=== PATIENT | female | born 2000 | race Caucasian/White ===

== ENCOUNTER 2020-03-31 11:10 | Inpatient (IN) | payer MEDICAID ==
[2020-03-31] MEDS ORDERED: Misoprostol 100 MCG Tab VAG STA (19:26)
[2020-03-31] MEDS ORDERED: Nalbuphine 10 MG/ML Syringe IVPUSH PRN (19:26)
[2020-03-31] MEDS ORDERED: Sodium Chloride 0.9% 10 ML Syringe FLUSH PRN (19:26)
[2020-03-31] MEDS ORDERED: Ondansetron 4 MG/2 ML SDV IVPUSH PRN (19:26)
--- NOTE | 2020-03-31 19:28 | PCM.LDHP ---
L&D History of Present Illness - General Date of Service: 03/31/20 Admit Problem/Dx: Patient Status Order with Admit Dx/Problem 03/31/20 19:26 Patient Status [ADT] Routine Admission Diagnosis/Problem Admission Diagnosis/Problem Normal in third trimester Source of Information: Patient History Limitations: Reports: No Limitations - History of Present Illness Introduction:: Patient is a 19 y/o at 40 1/7 wks who presents for IOL. Doing well. Getting good FM. 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: : 1 Para: 0 LMP (Approximate): - Past Surgical History HEENT Surgical History: Reports: Oral Surgery, Tonsillectomy Social & Family History - Family History Family Medical History: Noncontributory - Tobacco Use Smoking Status *Q: Never Smoker - Alcohol Use Alcohol Use History: No - Recreational Drug Use Recreational Drug Use: No H&P Review of Systems - Review of Systems: Review Of Systems: See Below General: Reports: No Symptoms Pulmonary: Reports: No Symptoms Cardiovascular: Reports: No Symptoms Gastrointestinal: Reports: No Symptoms Genitourinary: Reports: No Symptoms Musculoskeletal: Reports: No Symptoms Psychiatric: Reports: No Symptoms L&D Exam - Exam Exam: See Below - OB Specific Contraction Intensity: Irritability Movement: Active Heart Tones: Present Heart Tones per Min: 140 Heart Rate (FHR) Variability: Moderate (6-25 bmp) Presentation: Vertex - Strong Score Strong Score Cervix Position: Posterior Strong Score Consistency: Soft Strong Score Effacement: >80% Strong Score Dilation: 1-2 cm (2-3) Strong Score Infant's Station: -3 Strong Score Total: 6 - Exam General: Alert, Oriented, Cooperative Lungs: Clear to Auscultation, Normal Respiratory Effort Cardiovascular: Regular Rate, Regular Rhythm GI/Abdominal Exam: Soft, Non-Tender Genitourinary: Normal external exam Extremities: Normal Inspection Skin: Warm, Dry, Intact - Patient Data Result Diagrams: 03/31/20 19:45 - Problem List (1) 40 weeks gestation of SNOMED Code(s): 69690676 ICD Code: Z3A.40 - 40 WEEKS GESTATION OF Status: Acute Current Visit: Yes Problem List Initiated/Reviewed/Updated: Yes Orders Last 24hrs: Active Orders 24 hr Category Date Time Status Patient Status [ADT] Routine ADT 03/31/20 19:26 Ordered Communication Order [RC] ASDIRECTED Care 03/31/20 19:26 Ordered Communication Order [RC] ASDIRECTED Care 03/31/20 19:26 Ordered Communication Order [RC] ASDIRECTED Care 03/31/20 19:26 Ordered Communication Order [RC] ASDIRECTED Care 03/31/20 19:26 Ordered Heart Tones [RC] ASDIRECTED Care 03/31/20 19:26 Ordered Monitoring [RC] INTERMITTENT Care 03/31/20 19:26 Ordered Non Stress Test [RC] PER UNIT ROUTINE Care 03/31/20 19:26 Ordered Notify Provider [RC] ASDIRECTED Care 03/31/20 19:26 Ordered Notify Provider [RC] PRN Care 03/31/20 19:26 Ordered Peripheral IV Care [RC] . DIRECTED Care 03/31/20 19:26 Ordered Vaginal Exam [RC] ASDIRECTED Care 03/31/20 19:26 Ordered Vital Signs [RC] ASDIRECTED Care 03/31/20 19:26 Ordered Regular Diet [DIET] Diet 03/31/20 Dinner Ordered CBC W/O DIFF,HEMOGRAM [HEME] Stat Lab 03/31/20 19:26 Ordered RAPID PLASMA REAGIN,RPR [CHEM] Routine Lab 03/31/20 19:26 Ordered TYPE AND SCREEN [BBK] Routine Lab 03/31/20 19:26 Ordered Lactated Ringers [Ringers, Lactated] 1,000 ml Med 03/31/20 19:30 Ordered IV ASDIRECTED Nalbuphine [Nubain] Med 03/31/20 19:26 Ordered 10 mg IVPUSH Q2H PRN Ondansetron [Zofran] Med 03/31/20 19:26 Ordered 4 mg IVPUSH Q4H PRN Oxytocin/Lactated Ringers [Pitocin in LR 10 Units/1,000 Med 03/31/20 19:30 Ordered ML] 10 unit in 1,000 ml IV .CONTINUOUS Oxytocin/Lactated Ringers [Pitocin in LR 10 Units/1,000 Med 03/31/20 19:30 Ordered ML] 10 unit in 1,000 ml IV TITRATE Sodium Chloride 0.9% [Saline Flush] Med 03/31/20 19:26 Ordered 10 ml FLUSH ASDIRECTED PRN miSOPROStoL [Cytotec] Med 03/31/20 19:26 Stat 25 mcg VAG NOW STA Electronic Heart Tones Ext w TOCO [WOMSER] Oth 03/31/20 19:26 Ordered Routine Electronic Heart Tones Internal [WOMSER] Per Unit Ot 03/31/20 19:26 Ordered Routine Peripheral IV Insertion Adult [OM.PC] Routine Ot 03/31/20 19:26 Ordered Resuscitation Status Routine Resus Stat 03/31/20 19:26 Ordered Assessment/Plan Comment:: * Labs to be done * Cytotec for IOL, switch to pitocin / ROM when able * GBS negative, no need for antibiotics * Pain management per patient preference * Anticipate
[2020-03-31] MEDS ORDERED: Oxytocin/Lactated Ringers 10 UNIT/1,000 ML BAG IV SCH ×2 (19:30)
[2020-03-31] MEDS ORDERED: Misoprostol 25 MCG (1/4 of 100 MCG) Tab VAG ONE (20:04)
[2020-03-31] MEDS: Lactated Ringers 1,000 ML IV SCH (20:49)
[2020-04-01] MEDS ORDERED: Bupivacaine 0.25% 10 ML SDV ONE
[2020-04-01] MEDS: Lactated Ringers 1,000 ML IV SCH ×2 (04:59→07:33)
[2020-04-01] MEDS ORDERED: diphenhydrAMINE 50 MG/ML SDV IVPUSH PRN (05:03)
[2020-04-01] MEDS ORDERED: fentaNYL 100 MCG/2 ML SDV EPIDUR PRN (05:03)
[2020-04-01] MEDS ORDERED: Bupivacaine/fentaNYL/NS 100 ML Bag EPIDUR PRN (05:03)
[2020-04-01] MEDS ORDERED: ePHEDrine 50 MG/ML SDV IVPUSH PRN (05:03)
--- NOTE | 2020-04-01 05:53 | PCM.PREANE ---
Preanesthetic Assessment - Procedure Proposed Procedure: labor epidural - Anesthesia/Transfusion/Family Hx Anesthesia History: Prior Anesthesia Without Reaction Family History of Anesthesia Reaction: No Transfusion History: No Prior Transfusion(s) - Review of Systems General: No Symptoms Pulmonary: No Symptoms Cardiovascular: No Symptoms Gastrointestinal: Abdominal Pain, Nausea Neurological: Dizziness Other: Reports: None - Physical Assessment Vital Signs: Last Vital Signs Temp 36.8 C 03/31/20 19:40 Pulse 119 H 03/31/20 19:40 Resp 16 03/31/20 19:40 BP 132/86 03/31/20 19:40 Pulse Ox 96 03/31/20 19:40 Height: 1.63 m Weight: 96.162 kg ASA Class: 2 Mental Status: Alert & Oriented x3 Airway Class: Mallampati = 2 Dentition: Reports: Normal Dentition Thyro-Mental Finger Breadths: 3 Mouth Opening Finger Breadths: 3 ROM/Head Extension: Full Lungs: Clear to Auscultation, Normal Respiratory Effort Cardiovascular: Regular Rate, Regular Rhythm - Lab Values: Laboratory Last Values WBC 11.45 K/mm3 (3.98-10.04) H 03/31/20 19:45 RBC 4.31 M/mm3 (3.98-5.22) 03/31/20 19:45 Hgb 13.3 gm/dl (11.2-15.7) 03/31/20 19:45 Hct 38.6 % (34.1-44.9) 03/31/20 19:45 MCV 89.6 fl (79.4-94.8) 03/31/20 19:45 MCH 30.9 pg (25.6-32.2) 03/31/20 19:45 MCHC 34.5 g/dl (32.2-35.5) 03/31/20 19:45 RDW Std Deviation 41.9 fL (36.4-46.3) 03/31/20 19:45 Plt Count 234 K/mm3 (182-369) 03/31/20 19:45 MPV 11.4 fl (9.4-12.3) 03/31/20 19:45 RPR Non-reactive (NONREACTIVE) 03/31/20 19:45 Blood Type O POSITIVE 03/31/20 19:45 Gel Antibody Screen Negative 03/31/20 19:45 - Allergies Allergies/Adverse Reactions: Allergies Allergy/AdvReac Type Severity Reaction Status Date / Time azithromycin [From Zithromax] Allergy Hives Verified 03/31/20 21:04 - Acknowledgements Anesthesia Type Planned: Epidural Pt an Appropriate Candidate for the Planned Anesthesia: Yes Alternatives and Risks of Anesthesia Discussed w Pt/Guardian: Yes Pt/Guardian Understands and Agrees with Anesthesia Plan: Yes PreAnesthesia Questionnaire HEENT History: Reports: None Respiratory History: Reports: Asthma 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: Neurological History: Reports: Migraines - Past Surgical History HEENT Surgical History: Reports: Oral Surgery, Tonsillectomy - SUBSTANCE USE Smoking Status *Q: Never Smoker Tobacco Use Within Last Twelve Months: No Recreational Drug Use History: No - HOME MEDS Home Medications: Home Meds Acetaminophen [Pain Reliever] 1 tab PO ASDIRECTED PRN 03/31/20 [History] Albuterol [Proair HFA] 2 puff PO ASDIRECTED 03/31/20 [History] Pnv No.95/Ferrous Fum/Folic AC [ Tablet] 1 tab PO DAILY 03/31/20 [ History] Promethazine [Phenergan] 25 mg PO Q6H PRN 03/31/20 [History] - CURRENT (IN HOUSE) MEDS Current Meds: Current Medications Diphenhydramine HCl (Benadryl) 25 mg IVPUSH Q6H PRN PRN Reason: pruritis Ephedrine Sulfate (Ephedrine Sulfate) 5 mg IVPUSH ASDIRECTED PRN PRN Reason: Hypotension Fentanyl (Sublimaze) 100 mcg EPIDUR Q3H PRN PRN Reason: Pain Last Admin: 04/01/20 05:17 Dose: 100 mcg Fentanyl/Bupivacaine HCl (Fentanyl/Bupivacaine/Ns 2 Mcg-0.125% 100 Ml) 100 ml EPIDUR ASDIRECTED PRN PRN Reason: Pain Last Admin: 04/01/20 05:17 Dose: 100 ml Lactated Ringer's (Ringers, Lactated) 1,000 mls @ 40 mls/hr IV ASDIRECTED SHEEBA Last Admin: 04/01/20 04:59 Dose: 40 mls/hr Oxytocin/Lactated Ringer's (Pitocin In Lr 10 Units/1,000 Ml) 10 unit in 1,000 mls @ 12 mls/hr IV TITRATE SHEEBA; Protocol Last Titration: 04/01/20 04:10 Dose: 0 munits/min, 0 mls/hr Oxytocin/Lactated Ringer's (Pitocin In Lr 10 Units/1,000 Ml) 10 unit in 1,000 mls @ 500 mls/hr IV .CONTINUOUS SHEEBA Nalbuphine HCl (Nubain) 10 mg IVPUSH Q2H PRN PRN Reason: Pain Last Admin: 04/01/20 04:38 Dose: 10 mg Ondansetron HCl (Zofran) 4 mg IVPUSH Q4H PRN PRN Reason: Nausea/Vomiting Sodium Chloride (Saline Flush) 10 ml FLUSH ASDIRECTED PRN PRN Reason: Keep Vein Open Discontinued Medications Misoprostol (Cytotec) 25 mcg VAG NOW STA Stop: 03/31/20 19:27 Last Admin: 03/31/20 21:03 Dose: Not Given Misoprostol (Cytotec) 25 mcg VAG ONETIME ONE Stop: 03/31/20 20:05 Last Admin: 03/31/20 20:28 Dose: 25 mcg
--- NOTE | 2020-04-01 07:10 | PCM.PNLD ---
Labor Progress Note - VS & Meds Vital Signs: Last Vital Signs Temp 36.8 C 03/31/20 19:40 Pulse 119 H 03/31/20 19:40 Resp 16 03/31/20 19:40 BP 132/86 03/31/20 19:40 Pulse Ox 96 03/31/20 19:40 Active Medications: Current Medications Diphenhydramine HCl (Benadryl) 25 mg IVPUSH Q6H PRN PRN Reason: pruritis Ephedrine Sulfate (Ephedrine Sulfate) 5 mg IVPUSH ASDIRECTED PRN PRN Reason: Hypotension Fentanyl (Sublimaze) 100 mcg EPIDUR Q3H PRN PRN Reason: Pain Last Admin: 04/01/20 05:17 Dose: 100 mcg Fentanyl/Bupivacaine HCl (Fentanyl/Bupivacaine/Ns 2 Mcg-0.125% 100 Ml) 100 ml EPIDUR ASDIRECTED PRN PRN Reason: Pain Last Admin: 04/01/20 05:17 Dose: 100 ml Lactated Ringer's (Ringers, Lactated) 1,000 mls @ 40 mls/hr IV ASDIRECTED SHEEBA Last Admin: 04/01/20 04:59 Dose: 40 mls/hr Oxytocin/Lactated Ringer's (Pitocin In Lr 10 Units/1,000 Ml) 10 unit in 1,000 mls @ 12 mls/hr IV TITRATE SHEEBA; Protocol Last Titration: 04/01/20 04:10 Dose: 0 munits/min, 0 mls/hr Oxytocin/Lactated Ringer's (Pitocin In Lr 10 Units/1,000 Ml) 10 unit in 1,000 mls @ 500 mls/hr IV .CONTINUOUS SHEEBA Nalbuphine HCl (Nubain) 10 mg IVPUSH Q2H PRN PRN Reason: Pain Last Admin: 04/01/20 04:38 Dose: 10 mg Ondansetron HCl (Zofran) 4 mg IVPUSH Q4H PRN PRN Reason: Nausea/Vomiting Sodium Chloride (Saline Flush) 10 ml FLUSH ASDIRECTED PRN PRN Reason: Keep Vein Open Discontinued Medications Misoprostol (Cytotec) 25 mcg VAG NOW STA Stop: 03/31/20 19:27 Last Admin: 03/31/20 21:03 Dose: Not Given Misoprostol (Cytotec) 25 mcg VAG ONETIME ONE Stop: 03/31/20 20:05 Last Admin: 03/31/20 20:28 Dose: 25 mcg - Uterine Contractions Uterine Monitoring Mode: External [place] Contraction Intensity: Strong Uterine Resting Tone: Soft - Monitoring Monitor Mode: External Ultrasound Heart Rate (FHR) Baseline: 135 Heart Rate (FHR) Variability: Moderate (6-25 bmp) Accelerations: Present, 15x15 (with check) Decelerations: Early Strip Review: Category I - Vaginal Exam Dilation (cm): 9-10 Effacement (Percent): 100 Station: 1 Cervical Position: Anterior - Labor Progress (Free Text) Labor Progress: Doing well. Received one dose of cytotec overnight and then on pitocin briefly before discontinued as patient breana on own. Had SROM around 0500. Epidural complete this AM. Currently 9-10. Will reassess in another hour and likely begin pushing at that time
[2020-04-01] MEDS ORDERED: Misoprostol 200 MCG Tab PO ONE (11:20)
--- NOTE | 2020-04-01 11:39 | PCM.DEL ---
L & D Note - General Info Date of Service: 04/01/20 - Delivery Note Labor: Induced by Oxytocin Cervical Ripening Method: Misoprostil Delivery Outcome: Livebirth Delivery Method: Spontaneous Vaginal Delivery-Single Infant Delivery Mode: Vacuum Extraction Presentation: Right Occiput Anterior (JUANCARLOS) Nuchal Cord: None Anesthesia Type: Epidural Amniotic Fluid Description: Clear Episiotomy Type: None Laceration: 2nd Degree, Perineal Suture type: Vicryl Suture size: 2-0 Placenta: Intact, Spontaneous Cord: 3 Vessels Estimated Blood Loss: 300 Resuscitation Needed: Yes [place]: Bulb Syringe, Stimulated, Warmed, [place] Used, Warmer Used Score 1 min: 7 Score 5 min: 9 Delivery Comments (Free Text/Narrative):: Patient found to be complete and began pushing. Was augmented with pitocin while pushing. Different pushing positions utilized. After about 3 hrs of pushing did become tired and requested vacuum assistance. Sterile vaginal exam complete/complete/+3 station. head in JUANCARLOS presentation. Maternal pushing effort was good and the pelvis was felt to be adequate for an instrument assisted delivery. Given exhaustion the decision was made to proceed with vacuum assisted vaginal delivery. The mushroom cup was placed without difficulty with care to avoid the vaginal side coburn at 1106. Total pressure applied 550 mm Hg. No pop offs.. Suction was removed following delivery of the head. No nuchal cord. With gentle downward traction shoulders did not deliver. Patient put in deeper McRobert's and still did not deliver. Diagnosis of shoulder dystocia. Deep McRobert's and suprapubic pressure applied. Eventually anterior shoulder did deliver with rest of infant quickly following. Delivery at 1110. Total shoulder dystocia time about 45 seconds. The umbilical cord was clamped and cut and the was taken to the warmer for assessment. Placenta allowed time to separate and expelled intact. Inspection of the perineum following delivery with a 2nd degree laceration which was repaired with a 2-0 Vicryl in the typical fashion. - General Info Date of Service: 04/01/20 - Patient Data Vitals - Most Recent: Last Vital Signs Temp 36.8 C 03/31/20 19:40 Pulse 119 H 03/31/20 19:40 Resp 16 03/31/20 19:40 BP 132/86 03/31/20 19:40 Pulse Ox 96 03/31/20 19:40 Weight - Most Recent: 96.162 kg I&O - Last 24 Hours: Intake & Output 03/31/20 04/01/20 04/01/20 22:59 06:59 14:59 Intake Total 2700 Output Total 100 Balance 2600 Lab Results Last 24 Hours: Laboratory Results - last 24 hr 03/31/20 03/31/20 03/31/20 Range/Units 19:45 19:45 19:45 WBC 11.45 H (3.98-10.04) K/mm3 RBC 4.31 (3.98-5.22) M/mm3 Hgb 13.3 (11.2-15.7) gm/dl Hct 38.6 (34.1-44.9) % MCV 89.6 (79.4-94.8) fl MCH 30.9 (25.6-32.2) pg MCHC 34.5 (32.2-35.5) g/dl RDW Std Deviation 41.9 (36.4-46.3) fL Plt Count 234 (182-369) K/mm3 MPV 11.4 (9.4-12.3) fl RPR Non-reactive (NONREACTIVE) Blood Type O POSITIVE Gel Antibody Screen Negative Med Orders - Current: Current Medications Diphenhydramine HCl (Benadryl) 25 mg IVPUSH Q6H PRN PRN Reason: pruritis Ephedrine Sulfate (Ephedrine Sulfate) 5 mg IVPUSH ASDIRECTED PRN PRN Reason: Hypotension Fentanyl (Sublimaze) 100 mcg EPIDUR Q3H PRN PRN Reason: Pain Last Admin: 04/01/20 05:17 Dose: 100 mcg Fentanyl/Bupivacaine HCl (Fentanyl/Bupivacaine/Ns 2 Mcg-0.125% 100 Ml) 100 ml EPIDUR ASDIRECTED PRN PRN Reason: Pain Last Admin: 04/01/20 05:17 Dose: 100 ml Lactated Ringer's (Ringers, Lactated) 1,000 mls @ 40 mls/hr IV ASDIRECTED SHEEBA Last Admin: 04/01/20 07:33 Dose: 40 mls/hr Oxytocin/Lactated Ringer's (Pitocin In Lr 10 Units/1,000 Ml) 10 unit in 1,000 mls @ 12 mls/hr IV TITRATE SHEEBA; Protocol Last Titration: 04/01/20 11:11 Dose: 500 mls/hr Oxytocin/Lactated Ringer's (Pitocin In Lr 10 Units/1,000 Ml) 10 unit in 1,000 mls @ 500 mls/hr IV .CONTINUOUS SHEEBA Nalbuphine HCl (Nubain) 10 mg IVPUSH Q2H PRN PRN Reason: Pain Last Admin: 04/01/20 04:38 Dose: 10 mg Ondansetron HCl (Zofran) 4 mg IVPUSH Q4H PRN PRN Reason: Nausea/Vomiting Sodium Chloride (Saline Flush) 10 ml FLUSH ASDIRECTED PRN PRN Reason: Keep Vein Open Discontinued Medications Misoprostol (Cytotec) 25 mcg VAG NOW STA Stop: 03/31/20 19:27 Last Admin: 03/31/20 21:03 Dose: Not Given Misoprostol (Cytotec) 25 mcg VAG ONETIME ONE Stop: 03/31/20 20:05 Last Admin: 03/31/20 20:28 Dose: 25 mcg Misoprostol (Cytotec) 600 mcg PO ONETIME ONE Stop: 04/01/20 11:21 Last Admin: 04/01/20 11:25 Dose: 600 mcg - Problem List & Annotations (1) 40 weeks gestation of SNOMED Code(s): 55185449 Code(s): Z3A.40 - 40 WEEKS GESTATION OF Status: Acute Current Visit: Yes (2) Shoulder dystocia, delivered SNOMED Code(s): 960167141, 597778410 Code(s): O66.0 - OBSTRUCTED LABOR DUE TO SHOULDER DYSTOCIA Status: Acute Current Visit: Yes (3) Vaginal delivery SNOMED Code(s): 707456249 Code(s): O80 - ENCOUNTER FOR FULL-TERM UNCOMPLICATED DELIVERY Status: Acute Current Visit: Yes - Problem List Review Problem List Initiated/Reviewed/Updated: Yes - My Orders Last 24 Hours: My Active Orders 03/31/20 19:26 Patient Status [ADT] Routine Communication Order [RC] ASDIRECTED Communication Order [RC] ASDIRECTED Communication Order [RC] ASDIRECTED Communication Order [RC] ASDIRECTED Monitoring [RC] INTERMITTENT Non Stress Test [RC] PER UNIT ROUTINE Notify Provider [RC] ASDIRECTED Notify Provider [RC] PRN Peripheral IV Care [RC] . DIRECTED Vital Signs [RC] ASDIRECTED Nalbuphine [Nubain] 10 mg IVPUSH Q2H PRN Ondansetron [Zofran] 4 mg IVPUSH Q4H PRN Sodium Chloride 0.9% [Saline Flush] 10 ml FLUSH ASDIRECTED PRN Electronic Heart Tones Ext w TOCO [WOMSER] Routine Electronic Heart Tones Internal [WOMSER] Per Unit Routine Peripheral IV Insertion Adult [OM.PC] Routine Resuscitation Status Routine 03/31/20 19:30 Lactated Ringers [Ringers, Lactated] 1,000 ml IV ASDIRECTED Oxytocin/Lactated Ringers [Pitocin in LR 10 Units/1,000 ML] 10 unit in 1,000 ml IV .CONTINUOUS Oxytocin/Lactated Ringers [Pitocin in LR 10 Units/1,000 ML] 10 unit in 1,000 ml IV TITRATE 03/31/20 Dinner Regular Diet [DIET] 04/01/20 11:36 Patient Status Manage Transfer [TRANSFER] Routine - Assessment Assessment:: PPD#0 - Plan Plan:: * Routine cares * Breast feeding * Discharge home in 1-2 hours
[2020-04-01] MEDS ORDERED: Ondansetron 4 MG/2 ML SDV ONE (13:07)
[2020-04-01] MEDS: Benzocaine/Menthol 20%-0.5% Spray 56 GM Canister TOP PRN (13:11)
[2020-04-01] MEDS: Witch Hazel Medicated Pads 40/Jar TOP PRN (13:11)
[2020-04-01] MEDS: Acetaminophen 325 MG Tab PO PRN ×2 (14:32→19:24)
[2020-04-01] MEDS: Docusate Sodium 100 MG Cap PO PRN (19:24)
--- NOTE | 2020-04-01 22:02 | PCM48HPAN ---
Post Anesthesia Note - EVALUATION WITHIN 48HRS OF ANESTHETIC Vital Signs in Normal Range: Yes Patient Participated in Evaluation: Yes Respiratory Function Stable: Yes Airway Patent: Yes Cardiovascular Function Stable: Yes Hydration Status Stable: Yes Pain Control Satisfactory: Yes Nausea and Vomiting Control Satisfactory: Yes Mental Status Recovered: Yes Vital Signs: Last Vital Signs Temp 36.8 C 03/31/20 19:40 Pulse 119 H 03/31/20 19:40 Resp 16 03/31/20 19:40 BP 132/86 03/31/20 19:40 Pulse Ox 96 03/31/20 19:40
[2020-04-02] MEDS: Ibuprofen 600 MG Tab PO PRN ×3 (03:51→18:06)
[2020-04-02] MEDS: Witch Hazel Medicated Pads 40/Jar TOP PRN (03:53)
[2020-04-02] MEDS: Acetaminophen 325 MG Tab PO PRN ×3 (06:38→21:30)
[2020-04-02] MEDS: Benzocaine/Menthol 20%-0.5% Spray 56 GM Canister TOP PRN (06:38)
[2020-04-02] MEDS: Docusate Sodium 100 MG Cap PO PRN ×2 (10:15→21:30)
--- NOTE | 2020-04-02 10:23 | PCM.SN.2 ---
- Free Text/Narrative Note: Post Progress Note PPD #1 Subjective: Doing well overall. Ambulating without difficulty. Lochia minimal. Voiding without difficulty. Tolerating regular diet without nausea or vomiting. Pain controlled with oral medications. Breast-feeding with small amounts of formula supplementation with minimal difficulty. Objective: Vitals: Vital Signs - 24 hr 04/01/20 04/02/20 04/02/20 19:41 03:48 08:27 Temperature 36.7 C 36.7 C 36.9 C Pulse, 97 62 72 Peripheral Respiratory 14 13 12 Rate Blood Pressure 139/85 128/80 110/69 O2 Sat by Pulse 95 97 95 Oximetry Physical Exam General: Alert and oriented, no acute distress Lungs: Clear to auscultation bilaterally Heart: Regular rate and rhythm Abdomen: Soft, minimal appropriate tenderness, non-distended, fundus midline, nontender, and at the umbilicus Extremities: Trace edema in bilateral lower extremities to mid shins ASSESSMENT: 19-year-old female -0-0-1 s/p vacuum-assisted vaginal delivery PPD #1, complicated by shoulder dystocia during delivery PLAN: Doing well Breast-feeding with small amounts of formula supplementation with minimal difficulty. Assist as needed Lochia minimal. Continue to monitor for appropriate lochia. Continue routine care Anticipate discharge home tomorrow Rodo Artis MD 10:21 AM 04/02/2020
[2020-04-03] MEDS: Acetaminophen 325 MG Tab PO PRN ×2 (01:43→06:35)
[2020-04-03] MEDS: Ibuprofen 600 MG Tab PO PRN ×2 (01:43→08:24)
[2020-04-03] MEDS: Docusate Sodium 100 MG Cap PO PRN (08:24)
--- NOTE | 2020-04-03 09:50 | PCM.SN.2 ---
- Free Text/Narrative Note: Post Progress Note PPD #2 Subjective: Doing well overall. Ambulating without difficulty. Lochia minimal. Voiding without difficulty. Tolerating regular diet without nausea or vomiting. Pain controlled with oral medications. Reports that her pain has improved since yesterday. She states that the majority of her pain is on the right side of her pelvis and labia where she has continued swelling that was noted by the nurse overnight. Breast-feeding with minimal difficulty. She reports that she has not had to use any formula supplementation for the infant today. Objective: Vitals: Vital Signs - 24 hr 04/02/20 04/02/20 04/03/20 14:50 20:52 04:14 Temperature 36.9 C 36.7 C 36.7 C Pulse, 76 68 64 Peripheral Respiratory 12 14 Rate Blood Pressure 122/91 H 122/93 H 126/108 H O2 Sat by Pulse 96 98 96 Oximetry 04/03/20 04:48 Temperature Pulse, 65 Peripheral Respiratory Rate Blood Pressure 126/77 O2 Sat by Pulse 97 Oximetry Physical Exam General: Alert and oriented, no acute distress Lungs: Clear to auscultation bilaterally Heart: Regular rate and rhythm Abdomen: Soft, minimal appropriate tenderness, non-distended, fundus midline, nontender, and at the umbilicus Extremities: Trace edema in bilateral lower extremities to mid shins ASSESSMENT: 19-year-old female -0-0-1 s/p vacuum-assisted vaginal delivery PPD #2, complicated by shoulder dystocia during delivery PLAN: Doing well Breast-feeding with minimal difficulty. Assist as needed Lochia minimal. Continue to monitor for appropriate lochia. Moderate amount of swelling in the right labia majora without any obstruction or firm areas. No evidence of vulvar hematoma. Recommend for patient to continue to use ice pack or heating pad to help with swelling. Continue routine care Discharge home today Rodo Artis MD 9:48 AM 04/03/2020
--- NOTE | 2020-04-03 09:51 | PCM.DCSUM1 ---
Discharge Summary - Hospital Course Free Text/Narrative:: - Delivery Note Labor: Induced by Oxytocin Cervical Ripening Method: Misoprostil Delivery Outcome: Livebirth Delivery Method: Spontaneous Vaginal Delivery-Single Delivery Mode: Vacuum Extraction Presentation: Right Occiput Anterior (JUANCARLOS) Nuchal Cord: None Anesthesia Type: Epidural Amniotic Fluid Description: Clear Episiotomy Type: None Laceration: 2nd Degree, Perineal Suture type: Vicryl Suture size: 2-0 Placenta: Intact, Spontaneous Cord: 3 Vessels Estimated Blood Loss: 300 Resuscitation Needed: Yes : Bulb Syringe, Stimulated, Warmed, [place] Used, Warmer Used Score 1 min: 7 Score 5 min: 9 Delivery Comments (Free Text/Narrative):: Patient found to be complete and began pushing. Was augmented with pitocin while pushing. Different pushing positions utilized. After about 3 hrs of pushing did become tired and requested vacuum assistance. Sterile vaginal exam complete/complete/+3 station. head in JUANCARLOS presentation. Maternal pushing effort was good and the pelvis was felt to be adequate for an instrument assisted delivery. Given exhaustion the decision was made to proceed with vacuum assisted vaginal delivery. The mushroom cup was placed without difficulty with care to avoid the vaginal side coburn at 1106. Total pressure applied 550 mm Hg. No pop offs.. Suction was removed following delivery of the head. No nuchal cord. With gentle downward traction shoulders did not deliver. Patient put in deeper McRobert's and still did not deliver. Diagnosis of shoulder dystocia. Deep McRobert's and suprapubic pressure applied. Eventually anterior shoulder did deliver with rest of quickly following. Delivery at 1110. Total shoulder dystocia time about 45 seconds. The umbilical cord was clamped and cut and the infant was taken to the warmer for assessment. Placenta allowed time to separate and expelled intact. Inspection of the perineum following delivery with a 2nd degree laceration which was repaired with a 2-0 Vicryl in the typical fashion. HPI Initial Comments: - Delivery Note Labor: Induced by Oxytocin Cervical Ripening Method: Misoprostil Delivery Outcome: Livebirth Infant Delivery Method: Spontaneous Vaginal Delivery-Single Delivery Mode: Vacuum Extraction Presentation: Right Occiput Anterior (JUANCARLOS) Nuchal Cord: None Anesthesia Type: Epidural Amniotic Fluid Description: Clear Episiotomy Type: None Laceration: 2nd Degree, Perineal Suture type: Vicryl Suture size: 2-0 Placenta: Intact, Spontaneous Cord: 3 Vessels Estimated Blood Loss: 300 Resuscitation Needed: Yes : Bulb Syringe, Stimulated, Warmed, [place] Used, Warmer Used Score 1 min: 7 Score 5 min: 9 Delivery Comments (Free Text/Narrative):: Patient found to be complete and began pushing. Was augmented with pitocin while pushing. Different pushing positions utilized. After about 3 hrs of pushing did become tired and requested vacuum assistance. Sterile vaginal exam complete/complete/+3 station. head in JUANCARLOS presentation. Maternal pushing effort was good and the pelvis was felt to be adequate for an instrument assisted delivery. Given exhaustion the decision was made to proceed with vacuum assisted vaginal delivery. The mushroom cup was placed without difficulty with care to avoid the vaginal side coburn at 1106. Total pressure applied 550 mm Hg. No pop offs.. Suction was removed following delivery of the head. No nuchal cord. With gentle downward traction shoulders did not deliver. Patient put in deeper McRobert's and still did not deliver. Diagnosis of shoulder dystocia. Deep McRobert's and suprapubic pressure applied. Eventually anterior shoulder did deliver with rest of quickly following. Delivery at 1110. Total shoulder dystocia time about 45 seconds. The umbilical cord was clamped and cut and the was taken to the warmer for assessment. Placenta allowed time to separate and expelled intact. Inspection of the perineum following delivery with a 2nd degree laceration which was repaired with a 2-0 Vicryl in the typical fashion. Brief History: - Delivery Note. Labor: Induced by Oxytocin. Cervical Ripening Method: Misoprostil. Delivery Outcome: Livebirth. Infant Delivery Method: Spontaneous Vaginal Delivery-Single. Infant Delivery Mode: Vacuum Extraction. Presentation: Right Occiput Anterior (JUANCARLOS). Nuchal Cord: None. Anesthesia Type: Epidural. Amniotic Fluid Description: Clear. Episiotomy Type : None. Laceration: 2nd Degree, Perineal. Suture type: Vicryl. Suture size: 2 -0. Placenta: Intact, Spontaneous. Cord: 3 Vessels. Estimated Blood Loss: 300. Resuscitation Needed: Yes. : Bulb Syringe, Stimulated, Warmed, [place] Used, Warmer Used. Score 1 min: 7. Score 5 min: 9. Delivery Comments (Free Text/Narrative):: Patient found to be complete and began pushing. Was augmented with pitocin while pushing. Different pushing positions utilized. After about 3 hrs of pushing did become tired and requested vacuum assistance. Sterile vaginal exam complete/complete/+3 station. head in JUANCARLOS presentation. Maternal pushing effort was good and the pelvis was felt to be adequate for an instrument assisted delivery. Given exhaustion the decision was made to proceed with vacuum assisted vaginal delivery. The mushroom cup was placed without difficulty with care to avoid the vaginal side coburn at 1106. Total pressure applied 550 mm Hg. No pop offs.. Suction was removed following delivery of the head. No nuchal cord. With gentle downward traction shoulders did not deliver. Patient put in deeper McRobert's and still did not deliver. Diagnosis of shoulder dystocia. Deep McRobert's and suprapubic pressure applied. Eventually anterior shoulder did deliver with rest of infant quickly following. Delivery at 1110. Total shoulder dystocia time about 45 seconds. The umbilical cord was clamped and cut and the was taken to the warmer for assessment. Placenta allowed time to separate and expelled intact. Inspection of the perineum following delivery with a 2nd degree laceration which was repaired with a 2-0 Vicryl in the typical fashion. Diagnosis: Stroke: No - Discharge Data Discharge Date: 04/03/20 Discharge Disposition: Home, Self-Care 01 Condition: Good - Referral to Home Health Primary Care Physician: Lara Lou MD - Patient Summary/Data Complications: Vacuum-assisted vaginal delivery with shoulder dystocia Consults: None Hospital Course: Min Gore was admitted for elective induction of labor. On admission her cervix was dilated to 2-3 cm. She was GBS negative. She was given Cytotec for induction of labor. She was given pitocin for augmentation. She was given an epidural for anesthesia. She had spontaneous rupture of membranes with clear fluid. She progressed to complete and began pushing. She was pushing for approximately 3 hours with change in position and began to have maternal exhaustion. Discussion was had with the patient and she desired to proceed with vacuum-assisted vaginal delivery. Patient had a mushroom cup vacuum extractor applied to the head and with a vacuum assistance the head was able to be delivered. After delivery of the head there was a shoulder dystocia for approximately 45 seconds that was resolved with Kat position and suprapubic pressure. On 04/01/2020 she had a vacuum-assisted vaginal delivery of a live male at 11:10. Apgars of 7 and 9. Weight of 4410 g (9 pounds 11.6 ounces). Her course was uneventful. Her pain was well controlled and she had minimal lochia. She was ambulating, tolerating a regular diet and voiding normally. She was breast-feeding with minimal difficulty. In the morning of day #2 evaluation was performed of the patient's perineum with notation of mild amount of right labia majora swelling. Patient was able to urinate and was having minimal pain. No evidence of vaginal or vulvar hematoma on evaluation. She was afebrile and her hematocrit was 38.6 on admission. She desired to be discharged home on the morning of PPD #2. Her blood type is O+. - Patient Instructions Diet: Regular Diet as Tolerated Activity: Apply Ice, As Tolerated Activity, Other: Nothing in the vagina for 6 weeks Driving: May Drive Today Showering/Bathing: May Shower Wound/Incision Care: Keep Operative Site/Wound Site Clean and Dry Notify Provider of: Fever, Increased Pain, Swelling and Redness, Drainage, Nausea and/or Vomiting Other/Special Instructions: Please contact your physician's office if you have heavy vaginal bleeding enough to soak a pad in less than an hour for several hours. Monitor for worsening of the swelling in the labia. Ensure that you are able to urinate without difficulty with the swelling. Please contact your physician's office if you have difficulty urinating with this swelling present. You may use an ice pack or heating pad over the area to help with the swelling. Monitor for any signs of an infection in the breasts with severe pain or redness of the breast. - Discharge Plan *PRESCRIPTION DRUG MONITORING PROGRAM REVIEWED*: Not Applicable *COPY OF PRESCRIPTION DRUG MONITORING REPORT IN PATIENT JOSE: Not Applicable Home Medications: Home Meds Albuterol [Proair HFA] 2 puff PO ASDIRECTED 03/31/20 [History] Pnv No.95/Ferrous Fum/Folic AC [ Tablet] 1 tab PO DAILY 03/31/20 [ History] Promethazine [Phenergan] 25 mg PO Q6H PRN 03/31/20 [History] Acetaminophen [Tylenol] 650 mg PO Q4H PRN tablet 04/03/20 [Rx] Benzocaine/Menthol [Dermoplast Pain Relief [place]] 1 spray TOP ASDIRECTED PRN canister 04/03/20 [Rx] Docusate Sodium [Colace] 100 mg PO BID PRN cap 04/03/20 [Rx] Ibuprofen [Motrin] 600 mg PO Q6H PRN tablet 04/03/20 [Rx] witch Jacque [Tucks] 1 pad TOP ASDIRECTED PRN pad 04/03/20 [Rx] Patient Handouts: Care of a Perineal Tear, Care After Vaginal Delivery Referrals: Lara Lou MD [Primary Care Provider] - (Follow-up in 3 to 6 weeks for routine visit or earlier as needed.) - Discharge Summary/Plan Comment DC Time >30 min.: No - Patient Data Vitals - Most Recent: Last Vital Signs Temp 36.7 C 04/03/20 04:14 Pulse 65 04/03/20 04:48 Resp 14 04/03/20 04:14 BP 126/77 04/03/20 04:48 Pulse Ox 97 04/03/20 04:48 Weight - Most Recent: 96.162 kg Lab Results - Last 24 hrs: Laboratory Results - last 24 hr 03/31/20 Range/Units 19:45 Blood Type O POSITIVE Gel Antibody Screen Negative Med Orders - Current: Current Medications Acetaminophen (Tylenol) 650 mg PO Q4H PRN PRN Reason: mild pain or fever Last Admin: 04/03/20 06:35 Dose: 650 mg Benzocaine/Menthol (Dermoplast Pain Relief [place]) 0 gm TOP ASDIRECTED PRN PRN Reason: Perineal Comfort Measure Last Admin: 04/02/20 06:38 Dose: 1 canister Docusate Sodium (Colace) 100 mg PO BID PRN PRN Reason: Constipation Last Admin: 04/03/20 08:24 Dose: 100 mg Ibuprofen (Motrin) 600 mg PO Q6H PRN PRN Reason: Mild pain or fever Last Admin: 04/03/20 08:24 Dose: 600 mg Witch Jacque (Tucks) 1 pad TOP ASDIRECTED PRN PRN Reason: Perineal Comfort Measure Last Admin: 04/02/20 03:53 Dose: 1 applic Discontinued Medications Bupivacaine HCl (Sensorcaine-Mpf 0.25%) 10 ml .ROUTE .STK-MED ONE Stop: 04/01/20 00:01 Diphenhydramine HCl (Benadryl) 25 mg IVPUSH Q6H PRN PRN Reason: pruritis Ephedrine Sulfate (Ephedrine Sulfate) 5 mg IVPUSH ASDIRECTED PRN PRN Reason: Hypotension Fentanyl (Sublimaze) 100 mcg EPIDUR Q3H PRN PRN Reason: Pain Last Admin: 04/01/20 05:17 Dose: 100 mcg Fentanyl/Bupivacaine HCl (Fentanyl/Bupivacaine/Ns 2 Mcg-0.125% 100 Ml) 100 ml EPIDUR ASDIRECTED PRN PRN Reason: Pain Last Admin: 04/01/20 05:17 Dose: 100 ml Lactated Ringer's (Ringers, Lactated) 1,000 mls @ 40 mls/hr IV ASDIRECTED SHEEBA Last Admin: 04/01/20 07:33 Dose: 40 mls/hr Oxytocin/Lactated Ringer's (Pitocin In Lr 10 Units/1,000 Ml) 10 unit in 1,000 mls @ 12 mls/hr IV TITRATE SHEEBA; Protocol Last Titration: 04/01/20 11:11 Dose: 500 mls/hr Oxytocin/Lactated Ringer's (Pitocin In Lr 10 Units/1,000 Ml) 10 unit in 1,000 mls @ 500 mls/hr IV .CONTINUOUS SHEEBA Misoprostol (Cytotec) 25 mcg VAG NOW STA Stop: 03/31/20 19:27 Last Admin: 03/31/20 21:03 Dose: Not Given Misoprostol (Cytotec) 25 mcg VAG ONETIME ONE Stop: 03/31/20 20:05 Last Admin: 03/31/20 20:28 Dose: 25 mcg Misoprostol (Cytotec) 600 mcg PO ONETIME ONE Stop: 04/01/20 11:21 Last Admin: 04/01/20 11:25 Dose: 600 mcg Nalbuphine HCl (Nubain) 10 mg IVPUSH Q2H PRN PRN Reason: Pain Last Admin: 04/01/20 04:38 Dose: 10 mg Ondansetron HCl (Zofran) 4 mg IVPUSH Q4H PRN PRN Reason: Nausea/Vomiting Last Admin: 04/01/20 13:09 Dose: 4 mg Ondansetron HCl (Zofran) Confirm Administered Dose 4 mg .ROUTE .[facility] ONE Stop: 04/01/20 13:08 Last Admin: 04/01/20 13:26 Dose: Not Given Sodium Chloride (Saline Flush) 10 ml FLUSH ASDIRECTED PRN PRN Reason: Keep Vein Open
== END 2020-04-03 11:36 | disposition home or self-care (01) | DRG 807 ==
LOC: JD.OB 11:10 → OBSVTOIN 04-01 11:10 → JD.OB 04-01 11:11
PROVIDERS: ADMIT Obstetrics & Gynecology; ATTEND Obstetrics & Gynecology
PROC: 10D07Z6 Extraction of Products of Conception, Vacuum, Via Natural or Artificial Opening (ICD-10-PCS; principal; 2020-04-01)
PROC: 0KQM0ZZ Repair Perineum Muscle, Open Approach (ICD-10-PCS; 2020-04-01)
PROC: 3E0P7VZ Introduction of Hormone into Female Reproductive, Via Natural or Artificial Opening (ICD-10-PCS; 2020-04-01)
PROC: 3E033VJ Introduction of Other Hormone into Peripheral Vein, Percutaneous Approach (ICD-10-PCS; 2020-04-01)
PROC: 3E0R3BZ Introduction of Anesthetic Agent into Spinal Canal, Percutaneous Approach (ICD-10-PCS; 2020-04-01)
DX: O48.0 Post-term pregnancy (principal); Z37.0 Single live birth; O70.1 Second degree perineal laceration during delivery; O66.0 Obstructed labor due to shoulder dystocia; Z3A.40 40 weeks gestation of pregnancy; Z88.1 Allergy status to other antibiotic agents
CPT/HCPCS: 01967; 36415; 51701; 59025; 59409; 85027; 86592; 86850; 86900; 86901; A9270-GY; J2300; J2405; J2590; J3010; J3490; J7120